=== PATIENT | female | born 1985 | race Caucasian/White ===

== ENCOUNTER 2016-06-14 08:26 | Emergency (ER) | payer SELFPAY ==
[2016-06-14 08:58] VITALS: BP 118/82
--- NOTE | 2016-06-14 10:25 | UC ---
Hip/Pelvis Pain - HPI Summary HPI Summary: patient fell 2 weeks ago. since then she has had neck pain and sharp pains and numbness into the hand. she also has a "constant alexa horse" in the left hip. - History Of Current Complaint Chief Complaint: UCBackPain Stated Complaint: LOW BACK PAIN,LEFT LEG TINGLING Time Seen by Provider: 06/14/16 10:08 Hx Obtained From: Patient Hx Last Menstrual Period: 06/07/16 ?: No Onset/Duration: Sudden Onset, Lasting Days Timing: Constant Severity Initially: Moderate Severity Currently: Moderate Pain Intensity: 6 Pain Scale Used: 0-10 Numeric Location: Diffuse - accross low back and into the left hip and hip joint, visible "clunking" of the hip joint noted Character Of Pain: Aching, Throbbing, Spasmodic Aggravating Factor(s): Movement, Weight Bearing Alleviating Factor(s): Nothing Associated Signs And Symptoms: Positive: Negative - Risk Factors Septic Arthritis Risk Factor: Negative - Allergies/Home Medications Allergies/Adverse Reactions: Allergies Allergy/AdvReac Type Severity Reaction Status Date / Time No Known Allergies Allergy Verified 06/14/16 08:58 PMH/Surg Hx/FS Hx/Imm Hx Previously Healthy: Yes Endocrine History Of: Denies: Diabetes, Thyroid Disease Cardiovascular History Of: Denies: Cardiac Disorders, Hypertension Respiratory History Of: Denies: COPD, Asthma GI/ History Of: Denies: Ulcer - Surgical History Surgical History: Yes Surgery Procedure, Year, and Place: 2 D&C's. DENTAL EXTRACTIONS,08/30/13. x2 colonscopy - Family History Known Family History: Positive: Cardiac Disease, Hypertension - Social History Alcohol Use: Rare Substance Use Type: None Smoking Status (MU): Light Every Day Tobacco Smoker Type: Cigarettes Amount Used/How Often: 1/2 ppd Have You Smoked in the Last Year: Yes Household Exposure Type: Cigarettes Review of Systems Constitutional: Negative Skin: Negative Eyes: Negative ENT: Negative Respiratory: Negative Gastrointestinal: Negative Genitourinary: Negative Motor: Negative Neurovascular: Decreased Sensation - left arm Musculoskeletal: Arthralgia, Myalgia - left hip and neck Neurological: Negative Psychological: Negative All Other Systems Reviewed And Are Negative: Yes Physical Exam Triage Information Reviewed: Yes Appearance: Well-Appearing, Well-Nourished, Pain Distress Vital Signs: Initial Vital Signs Temp 98.6 F 06/14/16 08:43 Pulse 70 06/14/16 08:43 Resp 18 06/14/16 08:43 BP 118/82 06/14/16 08:43 Pulse Ox 100 06/14/16 08:43 Vital Signs Reviewed: Yes Eye Exam: Normal Eyes: Positive: Conjunctiva Clear ENT: Positive: Hearing grossly normal, Pharynx normal, TMs normal Dental Exam: Normal Neck exam: Normal Neck: Positive: Supple, Nontender, No Lymphadenopathy Respiratory Exam: Normal Respiratory: Positive: Chest non-tender, Lungs clear, Normal breath sounds Cardiovascular Exam: Normal Cardiovascular: Positive: RRR, No Murmur, Pulses Normal Abdominal Exam: Normal Abdomen Description: Positive: Nontender, No Organomegaly, Soft Bowel Sounds: Positive: Present Musculoskeletal Exam: Normal, Other Musculoskeletal: Positive: Strength Intact, No Edema, ROM Limited @ - in left hip, "clunking is notes" patient state that has been there as long as she can remember, muscle spasms decrease ROM Neurological Exam: Normal Neurological: Positive: Alert, Muscle Tone Normal Psychological Exam: Normal Skin Exam: Normal Hip Injury Course/Dx - Course Course Of Treatment: hx obtained, exam performed, medication reviewed, x rays obtained no fracures of neck or hip. Cervical stenosis on c5 c6 and c7c8 noted, medications prescribed. - Differential Dx/Diagnosis Differential Diagnosis/HQI/PQRI: Contusion, Dislocation, Fracture, Sprain, Strain Provider Diagnoses: DJD c5 to C8. left hip pain. cervical monoradiculopathy left Discharge - Discharge Plan Condition: Stable Disposition: HOME Patient Education Materials: Cervical Radiculopathy (ED) Additional Instructions: you have been given a shot of toradol today for pain relief. do not take anymore Ibuprofen for the next 6 hours. Start the Meloxicam tomorrow and take daily for pain relief. I am giving you a referral to physical therapy to work on loosening you neck for more permanent relief.
--- NOTE | 2016-06-14 10:47 | RAD ---
INDICATION: Trauma, left hip pain. COMPARISON: There are no prior studies available for comparison. TECHNIQUE: An AP view of the pelvis and frontal and lateral views of the left hip were obtained. FINDINGS: The bones are in normal alignment. No fracture is seen. There is a small calcification in the superior left labrum. No arthritic changes noted. IMPRESSION: NO EVIDENCE FOR FRACTURE.
--- NOTE | 2016-06-14 10:50 | RAD ---
Indication: Neck pain. 3 views of the cervical spine demonstrates straightening of the normal lordosis. Disc space narrowing at C5-C6 and C6-C7 is noted. Spinal canal appears to be intact. IMPRESSION: Degenerative disc disease at C5-C6 and C6-C7. No fracture is noted.
[2016-06-14] MEDS ORDERED: Ketorolac INJ* 30 MG/ML 1 ML VIAL IM ONE (10:57)
== END 2016-06-14 11:29 | disposition home or self-care (01) ==
LOC: UCCORT 08:26
DX: M50.123 Cervical disc disorder at C6-C7 level with radiculopathy (principal); M25.552 Pain in left hip; F17.210 Nicotine dependence, cigarettes, uncomplicated
CPT/HCPCS: 72040; 96372; 99212; G0463; J1885

== ENCOUNTER 2016-10-10 12:09 | Emergency (ER) | payer OTHER ==
[2016-10-10 13:12] VITALS: BP 107/66
[2016-10-10] MEDS ORDERED: Ketorolac INJ* 60 MG/2 ML VIAL IM ONE (14:02)
--- NOTE | 2016-10-10 14:17 | UC ---
Back Pain HPI - HPI Summary HPI Summary: FOUR WEEKS OF MID/LOW BACK PAIN. HAS HISTORY OF SCIATIC BACK PAIN SINCE 2012, AND HAS HAD REINJURY WHEN CONSOLING AUTISTIC DAUGHTER. LMP SEPTEMBER 17, BUT IS CURRENTLY SPOTTING, NOT SEXUALLY ACTIVE. PATIENT HAS NO CAR AND HAS DIFFICULTY GOING TO PCP, HAS HAD DIFFICULTY GETTING IN TO SEE PCP. WOULD LIKE TO COME UP WITH CONSISTENT PLAN FOR TREATING ACUTE ON CHRONIC BACK PAIN WITH PRIMARY CARE. HAS NOT HAD PT. PAIN IS SIMILAR TO PAST BACK PAIN; NO LOSS OF CONTROL OF BLADDER OR BOWELS. PAIN RADIATES DOWN RIGHT LEG, BUT NO NUMBNESS OR TINGLING. - History of Current Complaint Hx Obtained From: Patient Hx Last Menstrual Period: 09/17/16 Onset/Duration: Gradual Onset, Lasting Weeks, Still Present Timing: Intermittent, Lasting Weeks Severity Initially: Severe Severity Currently: Moderate Character: Aching, Spasmodic Aggravating: Movement, Lifting, Bending Alleviating: Rest, Position Associated Signs And Symptoms: Negative: Weakness, Numbness, Tingling, Abdominal Pain, Flank Pain, Bladder Incontinence, Bowel Incontinence, Pain with Weight Bearing Related History: Previous Back Injury - Risk Factors Cauda Equina Risk Factors: Negative Epidural Abscess Risk Factors: Negative <Js Wall - Last Filed: 10/10/16 14:12> <Gwen Castelan - Last Filed: 10/11/16 08:12> - History of Current Complaint Chief Complaint: UCGeneralIllness Stated Complaint: BACK & BILAT LEG PAIN;URINARY COMPLAINT Time Seen by Provider: 10/10/16 13:29 - Allergies/Home Medications Allergies/Adverse Reactions: Allergies Allergy/AdvReac Type Severity Reaction Status Date / Time No Known Allergies Allergy Verified 10/10/16 12:56 PMH/Surg Hx/FS Hx/Imm Hx Previously Healthy: Yes Endocrine History Of: Denies: Diabetes, Thyroid Disease Cardiovascular History Of: Denies: Cardiac Disorders, Hypertension Respiratory History Of: Denies: COPD, Asthma GI/ History Of: Denies: Ulcer - Surgical History Surgical History: Yes Surgery Procedure, Year, and Place: 2 D&C's. DENTAL EXTRACTIONS,08/30/13. x2 colonscopy - Family History Known Family History: Positive: Cardiac Disease, Hypertension Negative: Renal Disease - Social History Lives: With Family Alcohol Use: Rare Substance Use Type: None Smoking Status (MU): Light Every Day Tobacco Smoker Type: Cigarettes Amount Used/How Often: 1/2 ppd Have You Smoked in the Last Year: Yes Household Exposure Type: Cigarettes Cessation Counseling: Patient Advised to Stop - Immunization History Most Recent Influenza Vaccination: NONE Most Recent Tetanus Shot: UTD Most Recent Pneumonia Vaccination: NONE <KatlynelyseJs - Last Filed: 10/10/16 14:12> Review of Systems Constitutional: Negative Skin: Negative Eyes: Negative ENT: Negative Respiratory: Negative Cardiovascular: Negative Genitourinary: Frequency, Urgency Motor: Negative Neurovascular: Negative Musculoskeletal: Arthralgia, Myalgia - MID/LOW BACK Neurological: Negative Psychological: Negative All Other Systems Reviewed And Are Negative: Yes <DukeJs - Last Filed: 10/10/16 14:12> Physical Exam Triage Information Reviewed: Yes Appearance: Well-Appearing, No Pain Distress, Well-Nourished, Pain Distress - MILD, Thin Vital Signs: Initial Vital Signs Temp 98.7 F 10/10/16 12:57 Pulse 59 10/10/16 12:57 Resp 16 10/10/16 12:57 BP 107/66 10/10/16 12:57 Pulse Ox 100 10/10/16 12:57 Vital Signs Reviewed: Yes Eye Exam: Normal ENT Exam: Normal ENT: Positive: Normal ENT inspection, Hearing grossly normal, TMs normal Dental Exam: Normal Neck exam: Normal Neck: Positive: Supple, Nontender, No Lymphadenopathy Respiratory Exam: Normal Respiratory: Positive: Chest non-tender, Lungs clear, Normal breath sounds, No respiratory distress, No accessory muscle use Cardiovascular Exam: Normal Cardiovascular: Positive: RRR, No Murmur, Pulses Normal Abdominal Exam: Normal Abdomen Description: Positive: Nontender Musculoskeletal: Positive: Strength Intact, ROM Intact, No Edema, Other: - POSITIVE STRAIGHT LEG RAISE RIGHT 90 DEGREES, LEFT 15 DEGREES; PALPABLE SPASM ON LEFT THORACIC AND LUMBAR PARASPINAL MUSCLES Neurological Exam: Normal Psychological Exam: Normal Skin Exam: Normal <Js Wall - Last Filed: 10/10/16 14:12> Vital Signs: Initial Vital Signs Temp 98.7 F 10/10/16 12:57 Pulse 59 10/10/16 12:57 Resp 16 10/10/16 12:57 BP 107/66 10/10/16 12:57 Pulse Ox 100 10/10/16 12:57 <Gwen Castelan - Last Filed: 10/11/16 08:12> Back Pain Course/Dx - Differential Dx/Diagnosis Differential Diagnosis/HQI/PQRI: Fracture, Strain, Sprain Provider Diagnoses: ACUTE ON CHRONIC LOW BACK PAIN/SCIATICA ; DYSURIA <Js Wall - Last Filed: 10/10/16 14:12> Discharge <Js Wall - Last Filed: 10/10/16 14:12> <Gwen Castelan - Last Filed: 10/11/16 08:12> - Discharge Plan Condition: Stable Disposition: HOME Prescriptions: Cyclobenzaprine TAB* [Flexeril 10 MG TAB*] 10 mg PO TID PRN #15 tab PRN Reason: Spasms Ketorolac TAB * [Toradol TAB *] 10 mg PO Q8HR #10 tab Patient Education Materials: Sciatica (ED), Low Back Strain (ED), Dysuria (ED) , Chronic Back Pain (ED) Referrals: [facility] [place] [facility] [place] HIMA Mar [Primary Care Provider] - Additional Instructions: PHYSICAL THERAPY REFERRAL: You have been prescribed physical therapy. Treatments may include stretching, exercise, application of heat or cold, and other modalities. After an injury, PT can reduce swelling and pain. In recovery, PT is used to restore mobility and strength. Your specific treatment goals are: Reduction of Swelling (EGS, US, ice as needed) ___x__ Pain Reduction (EGS, US, ice as needed) __x___ TENS Pack Fitting and Instruction Wound Hydrotherapy ___x__ Preservation of Mobility ___x__ Anglican of Mobility ___x__ Strength Anglican ___x__ Work or Sports Hardening This instruction sheet also serves as your PHYSICAL THERAPY REFERRAL! Please take it with you to the therapist, so he/she will be aware of your diagnosis and treatment plan. You may see the physical therapist of your choice for these treatments, but may wish to check with your insurance to be sure the provider you select is covered. It's important to see the doctor to whom you have been referred for follow up. Attestation Statement User Type: Provider - I was available for consult. This patient was seen by the LIZBETH. The patient was not presented to, seen by, or examined by me. -Alec <Gwen Castelan - Last Filed: 10/11/16 08:12>
== END 2016-10-10 14:23 | disposition home or self-care (01) ==
LOC: UCCORT 12:09
DX: M54.40 Lumbago with sciatica, unspecified side (principal); R30.0 Dysuria; F17.210 Nicotine dependence, cigarettes, uncomplicated
CPT/HCPCS: 81003; 96372; 99212; G0463; J1885

== ENCOUNTER 2017-08-26 08:59 | Emergency (ER) | payer OTHER ==
[2017-08-26 09:26] VITALS: BP 104/67
--- NOTE | 2017-08-26 10:02 | UC ---
Lower Extremity/Ankle HPI - HPI Summary HPI Summary: Pt presents with low back pain radiating to her b/l legs L>R. She tells me that about 2-3 years ago she was told she had degenerative disk disease in her lower back. Has had pain from time to time, especially with movement. Over the last 5- 6 days she has had increased pain with radiation down her legs. Numbness and weakness in her left leg. Also experiencing some numbness and tingling in her groin. She tells me that over the last 3 days she has noticed her pants being wet because she has urinated on herself without knowing. Also will wake up in the middle of the night the urge to urinate, but cannot hold it to make it to the bathroom in time. No issues with bowel movements other than increased pain. She is able to ambulate without assistance, but does have a noticeable antalgic gait. Denies fever, chills, headache, dizziness, or recent injury. - History of Current Complaint Hx Obtained From: Patient Hx Last Menstrual Period: 08/04/17 Onset/Duration: Gradual Onset Severity Initially: Severe Severity Currently: Severe Pain Intensity: 8 Pain Scale Used: 0-10 Numeric Able to Bear Weight: Yes <Michael Naik - Last Filed: 08/26/17 11:52> <Gwen Castelan - Last Filed: 08/26/17 12:53> - History of Current Complaint Chief Complaint: UCGU Stated Complaint: COUGH,BACK/LEG PAIN Time Seen by Provider: 08/26/17 09:54 - Allergies/Home Medications Allergies/Adverse Reactions: Allergies Allergy/AdvReac Type Severity Reaction Status Date / Time No Known Allergies Allergy Verified 08/26/17 09:26 Home Medications: Home Medications Acetaminophen [Pain Relief] 500 mg PO Q4HR 08/26/17 [History Confirmed 08/26/17] Escitalopram (NF) [Lexapro 20 mg (NF)] 20 mg PO DAILY 08/26/17 [History Confirmed 08/26/17] Ibuprofen TAB* [Motrin TAB* 600 MG] 600 mg PO Q8H PRN 08/26/17 [History Confirmed 08/26/17] PMH/Surg Hx/FS Hx/Imm Hx Previously Healthy: Yes Psychological History: Anxiety, Depression - Surgical History Surgical History: Yes Surgery Procedure, Year, and Place: 2 D&C's. DENTAL EXTRACTIONS,08/30/13. x2 colonscopy - Family History Known Family History: Positive: Cardiac Disease, Hypertension Negative: Renal Disease - Social History Lives: With Family Alcohol Use: Rare Substance Use Type: None Smoking Status (MU): Light Every Day Tobacco Smoker Type: Cigarettes Amount Used/How Often: 1/2 ppd Have You Smoked in the Last Year: Yes Household Exposure Type: Cigarettes - Immunization History Most Recent Influenza Vaccination: NONE Most Recent Tetanus Shot: UTD Most Recent Pneumonia Vaccination: NONE <Michael Naik Last Filed: 08/26/17 11:52> Review of Systems Constitutional: Negative Skin: Negative Respiratory: Negative Cardiovascular: Negative Gastrointestinal: Negative Genitourinary: Dysuria Motor: Weakness Neurovascular: Decreased Sensation Musculoskeletal: Other: - LBP Neurological: Weakness Psychological: Negative All Other Systems Reviewed And Are Negative: Yes <Michael Naik Filed: 08/26/17 11:52> Physical Exam - Summary Physical Exam Summary: GENERAL: NAD. WDWN. No pain distress. SKIN: No rashes, sores, ulcers, masses, lesions. NECK: Supple. FROM. Nontender. No lymphadenopathy. CHEST: CTAB. No r/r/w. No accessory muscle use. Breathing comfortably and in no distress. CV: RRR. Without m/r/g. Pulses intact. Brisk cap refill. MSK: TTP over lumbar paraspinal muscles. No vertebral tenderness. Pain with flexion and extension of spine. Positive SLR b/l. Strength 3/5 left LE flexion, extension, dorsiflexion, and plantar flexion compared to right LE. NEURO: Alert. CN II-XII grossly intact. Sensations significantly decreased on left LE > Right LE L2-L5. Reflexes diminished on left LE compared to right. PSYCH: Age appropriate behavior. Triage Information Reviewed: Yes Vital Signs: Initial Vital Signs Temp 98.0 F 08/26/17 09:21 Pulse 74 08/26/17 09:21 Resp 18 08/26/17 09:21 BP 104/67 08/26/17 09:21 Pulse Ox 100 08/26/17 09:21 <Michael Naik - Last Filed: 08/26/17 11:52> Vital Signs: Initial Vital Signs Temp 98.0 F 08/26/17 09:21 Pulse 74 08/26/17 09:21 Resp 18 08/26/17 09:21 BP 104/67 08/26/17 09:21 Pulse Ox 100 08/26/17 09:21 <Gwen Castelan - Last Filed: 08/26/17 12:53> Lower Extremity Course/Dx - Course Course Of Treatment: Her history and PE at today's visit is very suspicious for cauda equina syndrome - I have advised her to seek further evaluation in the ED. Her drove her today and will drive her to the ED from Urgent Care. - Differential Dx/Diagnosis Provider Diagnoses: cauda equina syndrome <Michael Naik - Last Filed: 08/26/17 11:52> Discharge - Sign-Out/Discharge Documenting (check all that apply): Discharge - Discharge Plan Discharge Disposition Comment: To [place] [facility] by PC driving - Billing Disposition and Condition Condition: STABLE Disposition: HOME <Michael Naik - Last Filed: 08/26/17 11:52> - Billing Disposition and Condition Condition: STABLE Disposition: HOME <Gwen Castelan - Last Filed: 08/26/17 12:53> - Discharge Plan Condition: Stable Disposition: HOME Referrals: Susannah Delgado MD [Primary Care Provider] - Additional Instructions: Please have your drive you and go directly to the [place] [facility] for further evaluation of your back pain, numbness, and weakness. Attestation Statement User Type: Provider - I was available for consult. This patient was seen by the LIZBETH. The patient was not presented to, seen by, or examined by me. -Alec <Gwen Castelan - Last Filed: 08/26/17 12:53>
== END 2017-08-26 10:04 | disposition home or self-care (01) ==
LOC: UCCORT 08:59
DX: G83.4 Cauda equina syndrome (principal); F41.9 Anxiety disorder, unspecified; F32.9 Major depressive disorder, single episode, unspecified
CPT/HCPCS: 81003; 99212; G0463

== ENCOUNTER 2019-02-22 09:36 | Emergency (ER) | payer OTHER ==
[2019-02-22 10:03] VITALS: BP 99/65
--- NOTE | 2019-03-06 07:11 | UC ---
Skin Complaint HPI - HPI Summary HPI Summary: painful rash left lower abd x 7 days pain is 6 out of 10 , sharp, radiating to her back / flank area denies any fever, no chills, no n/v/d/c , no urinary sx - History of Current Complaint Chief Complaint: UCRash Time Seen by Provider: 02/22/19 10:02 Stated Complaint: SKIN COMPLAINT Hx Obtained From: Patient Hx Last Menstrual Period: 07/2017 ?: No Onset/Duration: Gradual Onset, Lasting Days - 7, Still Present Timing: Constant Onset Severity: Moderate Current Severity: Moderate Pain Intensity: 6 Pain Scale Used: 0-10 Numeric Location: Discrete - left lower abd Character: Swelling, Pain, Redness, Raised, Painful Aggravating Factor(s): Touch Alleviating Factor(s): Nothing Associated Signs & Symptoms: Negative: Nausea, Vomiting, Numbness, Fever, Chills - Allergy/Home Medications Allergies/Adverse Reactions: Allergies Allergy/AdvReac Type Severity Reaction Status Date / Time No Known Allergies Allergy Verified 02/22/19 09:52 Home Medications: Home Medications Anti-Paranoia 2 mg PO QAM 02/22/19 [History Confirmed 02/22/19] Calcium Carbonate [Calcium] 500 mg PO BID 02/22/19 [History Confirmed 02/22/19] Multivitamins/Minerals TAB* [Theragran/minerals TAB*] 1 tab PO DAILY 02/22/19 [ History Confirmed 02/22/19] PARoxetine HCL TAB* [Paxil TAB*] 30 mg PO DAILY 02/22/19 [History Confirmed 08/08] traZODone TAB* [Desyrel TAB*] 50 mg PO BEDTIME PRN 02/22/19 [History Confirmed 02/22/19] PMH/Surg Hx/FS Hx/Imm Hx - Additional Past Medical History Additional PMH: chicken pox; ulcerative colitis, sciatica, DDD; uterine prolapse - Surgical History Surgical History: Yes Surgery Procedure, Year, and Place: 2 D&C's. DENTAL EXTRACTIONS,08/30/13. x2 colonscopy - Family History Known Family History: Positive: Cardiac Disease, Hypertension Negative: Renal Disease - Social History Alcohol Use: None Substance Use Type: Marijuana Substance Use Comment - Amount & Last Used: 2 days Smoking Status (MU): Heavy Every Day Tobacco Smoker Type: Cigarettes Amount Used/How Often: 1/2 ppd Have You Smoked in the Last Year: Yes Household Exposure Type: Cigarettes - Immunization History Most Recent Influenza Vaccination: NONE Most Recent Tetanus Shot: UTD Most Recent Pneumonia Vaccination: NONE Review of Systems All Other Systems Reviewed And Are Negative: Yes Constitutional: Positive: Negative Skin: Positive: Rash Eyes: Positive: Negative ENT: Positive: Negative Respiratory: Positive: Negative Is Patient Immunocompromised?: No Physical Exam Triage Information Reviewed: Yes Appearance: Well-Appearing, No Pain Distress, Well-Nourished Vital Signs: Initial Vital Signs Temp 97.4 F 02/22/19 09:57 Pulse 66 02/22/19 09:57 Resp 14 02/22/19 09:57 BP 99/65 02/22/19 09:57 Pulse Ox 99 02/22/19 09:57 Vital Signs Reviewed: Yes Eyes: Positive: Conjunctiva Clear ENT: Positive: Normal ENT inspection, Hearing grossly normal, Pharynx normal Neck: Positive: Supple, Nontender, No Lymphadenopathy Respiratory: Positive: Chest non-tender, Lungs clear, Normal breath sounds Cardiovascular: Positive: RRR, No Murmur, Pulses Normal Skin: Positive: Rashes - visicular rash left lower abd wall extending to back , + swelling, erythema, tender to touch Course/Dx - Diagnoses Provider Diagnosis: Shingles Discharge ED - Sign-Out/Discharge Documenting (check all that apply): Patient Departure All imaging exams completed and their final reports reviewed: No Studies - Discharge Plan Condition: Stable Disposition: HOME Prescriptions: ValACYclovir (*) [Valtrex 1 GM(*)] 1 gm PO TID #21 tab Patient Education Materials: Shingles (ED) Referrals: Katiana Porter NP [Primary Care Provider] - 7 Days Additional Instructions: please call your [facility] today regarding your surgery tomorrow let them know you have shingles, may need to reschedule - Billing Disposition and Condition Condition: STABLE Disposition: Home
== END 2019-02-22 10:18 | disposition home or self-care (01) ==
LOC: UCCORT 09:36
DX: B02.9 Zoster without complications (principal); F17.210 Nicotine dependence, cigarettes, uncomplicated
CPT/HCPCS: 99212; G0463